=== PATIENT | female | born 1950 | race Caucasian/White ===

== ENCOUNTER 2019-02-22 05:17 | Inpatient (IN) | payer MEDICARE, BC ==
[2019-02-21] MEDS: GABAPENTIN 300 MG CAP PO (05:48)
[2019-02-21] MEDS: DEXAMETHASONE 1 MG TAB PO (05:48)
[2019-02-21] MEDS: CEFAZOLIN 2 GM/50 ML (PMX) 50 ML IVPB (07:10)
[2019-02-21] MEDS: TRANEXAMIC ACID 1GM/100ML(PMX) 100 ML IVPB (18:43)
[2019-02-21] MEDS: SOD CHLORIDE 0.9% 100 ML, TRANEXAMIC ACID 3,000 MG IRR (18:44)
[~2019-02-22 05:17] MED LIST: BUPIVACAINE 0.5% (SDV) 30 ML, morphine SULFATE (PF) 8 MG, EPINEPHrine 0.3 MG, KETOROLAC... IRR
[2019-02-22] MEDS: LACTATED RINGER'S 1,000 ML IV* (05:49)
[2019-02-22] MEDS ORDERED: BUPIVACAINE 0.5% (SDV) 30 ML, morphine SULFATE (PF) 8 MG, EPINEPHrine 0.3 MG, KETOROLAC... IRR (06:00)
[2019-02-22] MEDS ORDERED: CA CHLORIDE (GM) 10% 10 ML INJ (06:44)
[2019-02-22] MEDS: POLYMYXIN/BACITRACIN 1L IRRIG (06:44)
[2019-02-22] MEDS ORDERED: THROMBIN (BOVINE) 5,000 UNIT VIAL TP (06:44)
[2019-02-22] MEDS ORDERED: EPHEDrine SULFATE 50 MG/5 ML SYG (07:00)
[2019-02-22] MEDS ORDERED: CEFAZOLIN 1 GM INJ (07:05)
[2019-02-22] MEDS ORDERED: PROPOFOL 20 ML (07:05)
[2019-02-22] MEDS ORDERED: HYDROCORTISONE 100 MG INJ (07:05)
[2019-02-22] MEDS ORDERED: MIDAZOLAM 1 MG/ML 2 ML INJ (07:05)
[2019-02-22] MEDS ORDERED: morphine SULFATE/PF (10 MG/10 ML) INJ (07:05)
[2019-02-22] MEDS ORDERED: ROCURONIUM 50 MG INJ (07:05)
[2019-02-22] MEDS: CEFAZOLIN 2 GM/50 ML (PMX) 50 ML IVPB (07:10)
[2019-02-22] MEDS ORDERED: TRANEXAMIC ACID 1GM/100ML(PMX) 0 ML (07:25)
[2019-02-22] MEDS ORDERED: TRANEXAMIC ACID 1GM/100ML(PMX) 100 ML (07:25)
[2019-02-22] MEDS ORDERED: KETOROLAC 30 MG INJ (07:38)
[2019-02-22] MEDS ORDERED: DEXAMETHASONE 4 MG/ML 5 ML INJ (07:38)
[2019-02-22] MEDS ORDERED: ONDANSETRON 4 MG INJ (07:38)
[2019-02-22] MEDS ORDERED: METOCLOPRAMIDE 10 MG INJ (07:38)
[2019-02-22] MEDS ORDERED: ROPIVACAINE 0.2% 20 ML VIAL (07:42)
[2019-02-22] MEDS ORDERED: HETASTARCH 6% NACL 500 ML (07:44)
[2019-02-22] MEDS ORDERED: GLYCOPYRROLATE 0.4 MG INJ (07:54)
[2019-02-22] MEDS ORDERED: NEOSTIGMINE 10 MG INJ (07:54)
[2019-02-22] MEDS ORDERED: MEPERIDINE 25 MG INJ IV (08:00)
[2019-02-22] MEDS ORDERED: NALBUPHINE HCL (10 MG/1 ML) INJ IV (08:00)
[2019-02-22] MEDS ORDERED: HYDROmorphONE 1 MG/5 ML IV SYRINGE IV ×3 (08:00)
[2019-02-22] MEDS ORDERED: OXYCODONE/ACETAMINOPHEN (5/325) TAB PO (08:00)
[2019-02-22] MEDS ORDERED: morphine 2 MG INJ IV ×2 (08:00)
[2019-02-22] MEDS ORDERED: DIPHENHYDRAMINE 50 MG INJ IV ×3 (08:00→09:00)
[2019-02-22] MEDS ORDERED: METOCLOPRAMIDE 10 MG INJ IV (08:00)
[2019-02-22] MEDS ORDERED: LABETALOL HCL 20MG INJ IV (08:00)
[2019-02-22] MEDS ORDERED: NALOXONE (0.4 MG/ML) INJ IV ×2 (08:00)
[2019-02-22] MEDS ORDERED: ALBUMIN HUMAN 5% 250 ML IV (08:00)
[2019-02-22] MEDS ORDERED: EPHEDrine SULFATE 50 MG/5 ML SYG IV (08:00)
[2019-02-22] MEDS ORDERED: ONDANSETRON 4 MG INJ IV ×2 (08:00)
[2019-02-22] MEDS ORDERED: HYDROmorphONE 0.5 MG/0.5 ML SYG IV ×2 (08:00)
[2019-02-22] MEDS ORDERED: FENTAnyl 50 MCG/ML VIAL IV ×3 (08:00)
[2019-02-22] MEDS ORDERED: hydrALAzine 20 MG INJ IV (08:00)
[2019-02-22] MEDS ORDERED: KETOROLAC 30 MG INJ IV (08:00)
[2019-02-22] MEDS ORDERED: HYDROCODONE/APAP (5/325) TAB PO (08:00)
[2019-02-22] MEDS: LACTATED RINGER'S 1,000 ML IV ×3 (08:39→19:51)
[2019-02-22] MEDS ORDERED: NON-FORMULARY/PATIENT OWN MED (Salmeterol Xinaf/Fluticasone* (Advair*) 1 INH) INHALATION (09:00)
[2019-02-22] MEDS ORDERED: NACL 0.9% 3 ML SYG IV (09:00)
[2019-02-22] MEDS ORDERED: ZOLPIDEM 5 MG TAB PO (09:00)
[2019-02-22] MEDS ORDERED: oxyCODONE 5 MG TAB PO ×3 (09:00)
[2019-02-22] MEDS ORDERED: HYDROmorphONE 1 MG/ML SYG IV (09:00)
[2019-02-22] MEDS ORDERED: MAGNESIUM HYDROXIDE 30ML CUP PO (09:00)
[2019-02-22 09:22] LABS: ADD MAN DIFF? NO
[2019-02-22 09:24] LABS: BASOPHIL # 0.1 10^3/ul (0.0-0.1); BASOPHILS % 0.7 % (0.0-2.0); EOSINOPHILS % 0.4 % (0.0-7.0); HEMATOCRIT 31.5 % (37.0-47.0); HEMOGLOBIN 10.4 g/dl (12.0-16.0); LYMPHOCYTES # 0.6 10^3/ul (0.8-2.9); LYMPHOCYTES % 9.2 % (15.0-51.0); MEAN CORPUSCULAR HEMOGLOBIN 30.5 pg (29.0-33.0); MEAN CORPUSCULAR VOLUME 92.4 fl (82.0-101.0); MEAN PLATELET VOLUME 10.4 fl (7.4-10.4); MONOCYTE # 0.2 10^3/ul (0.3-0.9); MONOCYTES % 2.8 % (0.0-11.0); NEUTROPHIL # 5.8 10^3/ul (1.6-7.5); NEUTROPHILS % 85.6 % (39.0-77.0); PLATELET COUNT 231 10^3/UL (140-415); RED BLOOD COUNT 3.41 10^6/ul (4.20-5.40); RED CELL DISTRIBUTION WIDTH 12.1 % (11.5-14.5)
[2019-02-22 09:24] LABS: WHITE BLOOD COUNT 6.8 10^3/ul (4.8-10.8)
[2019-02-22] MEDS: ACETAMINOPHEN 1000MG/100ML IV 100 ML IVPB ×2 (09:37→17:20)
[2019-02-22] MEDS: DEXAMETHASONE 2 MG TAB PO ×2 (12:53→17:20)
[2019-02-22] MEDS: CEFAZOLIN 1 GM/50 ML (PMX) 50 ML IVPB ×2 (13:52→21:52)
[2019-02-22] MEDS: ONDANSETRON 4 MG INJ IV (14:19)
[2019-02-22] MEDS: SOD CHLORIDE 0.9% 100 ML, TRANEXAMIC ACID 3,000 MG IRR (18:44)
[2019-02-22] MEDS: DEXAMETHASONE 1 MG TAB PO (18:45)
[2019-02-22] MEDS: TRANEXAMIC ACID 1GM/100ML(PMX) 100 ML IVPB (18:45)
[2019-02-22] MEDS: GABAPENTIN 300 MG CAP PO ×2 (20:06→21:00)
[2019-02-22] MEDS: SENNA/DOCUSATE NA (8.6MG/50MG) TAB PO (21:00)
[2019-02-22] MEDS: ATORVASTATIN 40 MG TAB PO (21:00)
[2019-02-23] MEDS: DEXAMETHASONE 2 MG TAB PO ×2 (00:44→06:15)
[2019-02-23] MEDS: ACETAMINOPHEN 1000MG/100ML IV 100 ML IVPB (00:46)
[2019-02-23 05:30] LABS: ADD MAN DIFF? NO
[2019-02-23 05:35] LABS: BASOPHILS % 0.2 % (0.0-2.0); HEMATOCRIT 31.2 % (37.0-47.0); HEMOGLOBIN 10.5 g/dl (12.0-16.0); LYMPHOCYTES # 0.6 10^3/ul (0.8-2.9); LYMPHOCYTES % 4.8 % (15.0-51.0); MEAN CORPUSCULAR HEMOGLOBIN 30.8 pg (29.0-33.0); MEAN CORPUSCULAR HGB CONC 33.7 g/dl (32.0-37.0); MEAN CORPUSCULAR VOLUME 91.5 fl (82.0-101.0); MEAN PLATELET VOLUME 11.4 fl (7.4-10.4); MONOCYTES % 8.2 % (0.0-11.0); NEUTROPHIL # 10.8 10^3/ul (1.6-7.5); NEUTROPHILS % 86.2 % (39.0-77.0); PLATELET COUNT 247 10^3/UL (140-415); RED BLOOD COUNT 3.41 10^6/ul (4.20-5.40); RED CELL DISTRIBUTION WIDTH 11.9 % (11.5-14.5)
[2019-02-23 05:35] LABS: WHITE BLOOD COUNT 12.6 10^3/ul (4.8-10.8)
[2019-02-23] MEDS: CEFAZOLIN 1 GM/50 ML (PMX) 50 ML IVPB (06:14)
[2019-02-23] MEDS: LACTATED RINGER'S 1,000 ML IV (06:14)
[2019-02-23] MEDS: LEVOTHYROXINE 50 MCG TAB PO (06:15)
[2019-02-23] MEDS: SENNA/DOCUSATE NA (8.6MG/50MG) TAB PO (09:00)
[2019-02-23] MEDS: MIRTAZAPINE 15 MG TAB PO (09:00)
[2019-02-23] MEDS: FLUTICASONE/VILANTEROL 100-25 INH (09:00)
[2019-02-23] MEDS: ASPIRIN (EC) 325 MG TAB PO (09:08)
[2019-02-23] MEDS: ACETAMINOPHEN 500 MG TAB PO (13:02)
[2019-02-24] MEDS ORDERED: MAGNESIUM HYDROXIDE 30ML CUP PO (21:00)
== END 2019-02-23 15:20 | disposition home or self-care (01) | DRG 470 ==
LOC: REC 05:17 → MS1 10:04
PROVIDERS: Orthopaedic Surgery
PROC: 0SR904A Replacement of Right Hip Joint with Ceramic on Polyethylene Synthetic Substitute, Uncemented, Open Approach (ICD-10-PCS; principal; 2019-02-22 07:00)
DX: M13.851 Other specified arthritis, right hip (principal); J45.909 Unspecified asthma, uncomplicated
CPT/HCPCS: 72170; 73530; 85025; 86999; 87086; 88304; 88311; 97110; 97116; 97161